=== PATIENT | male | born 1975 | race African-American/Black ===

== ENCOUNTER 2017-05-22 06:59 | Emergency (ER) | payer OTHER ==
[~2017-05-22] VITALS: Ht 190.5 cm; Wt 122.5 kg
[2017-05-22 07:09] VITALS: TEMP 36.6; Ht 190.5 cm; Wt 122.5 kg
[2017-05-22] MEDS ORDERED: QUET1TAB13 PO (07:11)
[2017-05-22] MEDS ORDERED: IBUP600T44 PO (07:11)
[2017-05-22] MEDS ORDERED: LITH1TAB PO (07:11)
[2017-05-22] MEDS ORDERED: OPTIRAY 320 IV PRN (07:30)
[2017-05-22 07:35] LABS: BASO % 0.2 %; BASO ABS # 0.01 K/uL (0-0.2); COMPLETE YES; EOS % 0.5 %; HEMATOCRIT 40.6 % (42-52); IG% 0.3 %; LYMPH % 23.2 %; LYMPH ABS # 1.43 K/uL (1.2-3.4); MEAN CELL VOLUME 87.9 fL (80-100); MEAN CORPUSCULAR HEMOGLOBIN 30.7 pg (25-34); MEAN PLATELET VOLUME 10.9 fL (7.4-10.4); MONO % 7.6 %; NEUT % 68.2 %; PLATELET COUNT 178 K/uL (130-400); RED BLOOD COUNT 4.62 M/uL (4.7-6.1); WHITE BLOOD COUNT 6.16 K/uL (4.8-10.8)
[2017-05-22 07:38] LABS: ISTAT CREATININE 1.2 mg/dl (0.6-1.3); ISTAT HEMOGLOBIN 13.9 g/dl (14.0-18.0); ISTAT IONIZED CALCIUM 1.26 mmol/l (1.12-1.32)
[2017-05-22 07:49] LABS: URINE APPEARANCE CLEAR (CLEAR); URINE BILIRUBIN NEG (NEG); URINE COLOR YELLOW; URINE NITRITE NEG (NEG); URINE PH 8.5 (4.5-7.5); URINE SPECIFIC GRAVITY 1.003 (1.000-1.030); UROBILINOGEN NEG (NEG)
[2017-05-22 07:52] LABS: BUN/CREATININE RATIO 15.5 (10-20); CALCIUM 9.4 mg/dl (8.5-10.1); CREATININE 1.19 mg/dl (0.60-1.40); POTASSIUM 3.9 mmol/L (3.5-5.1)
[2017-05-22 07:56] LABS: MANUAL MICROSCOPIC REQUIRED? NO; REVIEW REQ? NO
--- NOTE | 2017-05-22 08:04 | DIAGNOSTIC IMAGING REPORT ---
CERVICAL SPINE W/O CT DOSE: HISTORY: Trauma Neck pain TECHNIQUE: Multiaxial CT images of the cervical spine were performed and reformatted in the sagittal and coronal plane without the use of contrast. A dose lowering technique was utilized adhering to the principles of ALARA. COMPARISON: None. FINDINGS: No fractures. No subluxation. Prevertebral soft tissues and the C1-C2 interval are intact. No pneumothorax. IMPRESSION: No fractures within the cervical spine. The above report was generated using voice recognition software. It may contain grammatical, syntax or spelling errors. Electronically signed by: Pj Littlejonh M.D. 05/22/2017 8:02 AM Dictated Date/Time: 05/22/2017 7:59 AM
--- NOTE | 2017-05-22 08:07 | DIAGNOSTIC IMAGING REPORT ---
HEAD WITHOUT CONTRAST (CT) CT DOSE: HISTORY: Trauma [place] TECHNIQUE: Multiaxial CT images of the head were performed without the use of intravenous contrast. A dose lowering technique was utilized adhering to the principles of ALARA. Comparison: None. Findings: The paranasal sinuses and mastoid air cells are clear. The calvarium and skull base are intact. The ventricles and sulci are within normal limits. There is no mass, hematoma, midline shift, or acute infarct. Impression: No acute intracranial abnormality. The above report was generated using voice recognition software. It may contain grammatical, syntax or spelling errors. Electronically signed by: Pj Littlejohn M.D. 05/22/2017 8:05 AM Dictated Date/Time: 05/22/2017 8:04 AM
--- NOTE | 2017-05-22 08:10 | DIAGNOSTIC IMAGING REPORT ---
THORACIC SPINE WITHOUT CT DOSE: 3084.41 mGy.cm HISTORY: Trauma Upper back pain TECHNIQUE: Multiaxial CT images of the thoracic spine were performed and reformatted in the sagittal and coronal plane without the use of contrast. A dose lowering technique was utilized adhering to the principles of ALARA. COMPARISON: None. FINDINGS: No fractures. No subluxation. Paraspinal soft tissues are unremarkable. IMPRESSION: No fractures within the thoracic spine. The above report was generated using voice recognition software. It may contain grammatical, syntax or spelling errors. Electronically signed by: Pj Littlejohn M.D. 05/22/2017 8:09 AM Dictated Date/Time: 05/22/2017 8:06 AM
--- NOTE | 2017-05-22 08:12 | DIAGNOSTIC IMAGING REPORT ---
CT NECK WITH INTRAVENOUS CONTRAST. HISTORY: Neck pain TECHNIQUE: Multiaxial CT images of the neck were performed following the use of intravenous contrast. COMPARISON STUDY: None. FINDINGS: There are few biapical blebs with the largest on the right measuring 1.9 cm. No pneumothorax. The trachea is midline and is patent. No fractures within the visualized osseous structures. Paranasal sinuses and mastoid air cells are clear. The visualized brain parenchyma and orbits are unremarkable. The major mucosal airway surfaces are intact. The epiglottis and prevertebral soft tissues are normal in thickness. The thyroid gland enhances normally. No significant cervical lymphadenopathy. The parotid and submandibular glands are symmetric. No masses or loculated fluid collections identified. The major cervical vessels enhance normally. IMPRESSION: No significant abnormality identified within the neck. Electronically signed by: Jordan Phan M.D. 05/22/2017 8:10 AM Dictated Date/Time: 05/22/2017 8:06 AM
[2017-05-22] MEDS ORDERED: GADAVIST IV PRN (11:30)
--- NOTE | 2017-05-22 11:34 | DIAGNOSTIC IMAGING REPORT ---
CERVICAL SPINE COMBO HISTORY: Pain. Trauma. Lower > Upper extremity paresthesias TECHNIQUE: Multiplanar multisequence MRI of the cervical spine was performed both before and after the use of intravenous contrast. COMPARISON STUDY: CT study same date FINDINGS: Signal characteristics of the vertebral bodies are unremarkable. There are findings of minimal degenerative disc desiccation C2-C5. Signal characteristics of the cervical cord are unremarkable. Postcontrast sagittal images show no abnormal postcontrast enhancement. C2-C3: Minimal disc bulge C3-C4: Moderate osteophytic narrowing left neuroforamina. Minimal left posterior disc bulge C4-C5: Mild broad-based disc disc bulge. C5-C6: No significant central canal or neural foraminal narrowing. C6-C7: No significant central canal or neural foraminal narrowing. C7-T1: No significant central canal or neural foraminal narrowing. IMPRESSION: 1. No acute process of the cervical spine. 2. Minimal disc bulges on a degenerative basis at several levels. 3. No abnormal signal characteristics the cervical cord. The above report was generated using voice recognition software. It may contain grammatical, syntax or spelling errors. Electronically signed by: Pj Littlejohn M.D. 05/22/2017 11:33 AM Dictated Date/Time: 05/22/2017 11:29 AM
[2017-05-22 12:54] VITALS: BP 122/77; PULSE 87; O2SAT 97
--- NOTE | 2017-05-22 15:24 | EMERGENCY ROOM VISIT NOTE ---
History First contact with patient: 07:06 Chief Complaint: BACK PAIN Stated Complaint: NEAD/NECK AND BACK PAIN History of Present Illness The patient is a 41 year old male who presents to the Emergency Room via ambulance from [facility] [place] for evaluation of injuries after being found hanging from his cell vent with a bed sheet wrapped around his neck. They suspect that this happened around 5:30 AM. They do not know how long the patient was hanging, and reported that they did not review security camera coverage. They report that the patient was not unconscious when he was found. The patient complains of a headache, neck pain and upper back pain. He also reports tingling in both of his legs. He did initially have some numbness in the arms that has since resolved. He denies any difficulty swallowing, chest pain, shortness of breath or paresthesias/numbness of the upper extremities. He rates his discomfort a 4 out of 10. Review of Systems HEENT: Denies dizziness, visual problems, hearing loss, tinnitus. Denies difficulty swallowing or oral lesions. PULMONARY: Denies cough, shortness of breath, sputum production or hemoptysis. CARDIOVASCULAR: Denies chest pain, palpitations, dyspnea on exertion, orthopnea or peripheral edema. GASTROINTESTINAL: Denies diarrhea, constipation, nausea, vomiting, or abdominal pain. GENITOURINARY: Denies dysuria, frequency, urgency or nocturia. NEUROLOGIC: Denies history of epilepsy, CVA, TIA or chronic headaches. MUSCULOSKELETAL: Denies history of joint tenderness/swelling. SKIN: Denies rashes or lesions. PSYCHIATRIC: History of depression. ENDOCRINE: Denies history of diabetes or thyroid disorders. Past Medical/Surgical History Medical Problems: (1) Antisocial personality disorder in adult (2) Cannabis use disorder, severe, dependence (3) Cocaine use disorder, severe, dependence (4) Major depressive disorder, single episode, unspecified (5) Opioid use disorder, severe, dependence (6) Phencyclidine (PCP) use disorder, moderate (7) Sedative, hypnotic or anxiolytic use disorder, moderate, in controlled environment, dependence Surgical Problems: (1) No history of previous surgery Family History Unknown Social History Smoking Status: Former Smoker Alcohol Use: none Drug Use: none Marital Status: single Housing Status: other (incarcerated) Occupation Status: unemployed Current/Historical Medications Scheduled Ibuprofen (Motrin), 600 MG PO TID [place] Carbonate Ext Rel (Lithobid Ext Rel), 450 MG PO BID Quetiapine Fumarate (Seroquel), 400 MG PO BID Physical Exam Vital Signs Date Time Temp Pulse Resp B/P (MAP) Pulse Ox O2 Delivery O2 Flow Rate FiO2 05/22/17 12:54 87 20 122/77 97 05/22/17 12:05 77 05/22/17 11:34 72 20 116/74 100 Room Air 05/22/17 07:15 84 05/22/17 07:09 36.6 74 16 119/82 100 Room Air Physical Exam CONSTITUTIONAL: Healthy and well nourished. Alert and oriented X 3. Patient does not appear in any acute distress. GCS 15. The patient is currently cured on a longboard with cervical collar in place. HEENT: Normocephalic, atraumatic. Pupils equal, round and reactive. No subconjunctival hemorrhage, hemotympanum, epistaxis, raccoon's eyes or Arteaga sign. OROPHARYNX: No posterior pharyngeal erythema, edema or postnasal bleeding. NECK: The patient has generalized tenderness to palpation about the neck. However, there is no visible circumferential or partial circumferential edema, ecchymosis, erythema or petechiae noted. RESPIRATORY: Clear to auscultation bilaterally with no wheezing, crackles, rhonchi or stridor. CARDIOVASCULAR: Regular rate and rhythm with no murmurs, rubs or gallops. GASTROINTESTINAL: Bowel sounds present in all quadrants. Abdomen is soft and nontender to palpation. MUSCULOSKELETAL: Examination shows generalized tenderness to palpation through the mid to upper cervical spine, paraspinous muscles, scalenes and trapezius muscles. No ecchymosis or petechiae noted. The patient has no tenderness to palpation of the upper or lower extremities. Equal hand sign language teacher bilaterally. Ankle plantar/dorsiflexion strength is 5 out of 5 and symmetric bilaterally. INTEGUMENTARY: No rash or other significant dermatologic conditions noted. NEUROLOGIC: Cranial nerves II-XII grossly intact. No focal neurologic deficits noted. Upper and lower extremities are sensory intact. Deep tendon reflexes of the upper and lower extremities are 2+ and symmetric bilaterally. Medical Decision & Procedures ER Provider Diagnostic Interpretation: Noncontrast CT of the head, cervical spine and thoracic spine were normal without any evidence for acute fractures, intracranial bleed or subluxations. All radiologist reports were reviewed. CT with IV contrast of the neck does not show any additional soft tissue injury. Radiologist report was also reviewed area and MRI combo of the cervical spine does not show any abnormal signal changes or other acute findings. Radiologist report is as follows: CERVICAL SPINE COMBO HISTORY: Pain. Trauma. Lower > Upper extremity paresthesias TECHNIQUE: Multiplanar multisequence MRI of the cervical spine was performed both before and after the use of intravenous contrast. COMPARISON STUDY: CT study same date FINDINGS: Signal characteristics of the vertebral bodies are unremarkable. There are findings of minimal degenerative disc desiccation C2-C5. Signal characteristics of the cervical cord are unremarkable. Postcontrast sagittal images show no abnormal postcontrast enhancement. C2-C3: Minimal disc bulge C3-C4: Moderate osteophytic narrowing left neuroforamina. Minimal left posterior disc bulge C4-C5: Mild broad-based disc disc bulge. C5-C6: No significant central canal or neural foraminal narrowing. C6-C7: No significant central canal or neural foraminal narrowing. C7-T1: No significant central canal or neural foraminal narrowing. IMPRESSION: 1. No acute process of the cervical spine. 2. Minimal disc bulges on a degenerative basis at several levels. 3. No abnormal signal characteristics the cervical cord. Laboratory Results 05/22/17 07:20 Red Blood Count 4.62, Mean Corpuscular Volume 87.9, Mean Corpuscular Hemoglobin 30.7, Mean Corpuscular Hemoglobin Concent 35.0, Mean Platelet Volume 10.9, Neutrophils (%) (Auto) 68.2, Lymphocytes (%) (Auto) 23.2, Monocytes (%) (Auto) 7.6, Eosinophils (%) (Auto) 0.5, Basophils (%) (Auto) 0.2, Neutrophils # (Auto) 4.20, Lymphocytes # (Auto) 1.43, Monocytes # (Auto) 0.47, Eosinophils # (Auto) 0.03, Basophils # (Auto) 0.01 05/22/17 07:20 Test 05/22/17 07:20 05/22/17 07:26 05/22/17 07:30 White Blood Count 6.16 K/uL (4.8-10.8) Red Blood Count 4.62 M/uL (4.7-6.1) Hemoglobin 14.2 g/dL (14.0-18.0) Hematocrit 40.6 % (42-52) Mean Corpuscular Volume 87.9 fL (80-100) Mean Corpuscular Hemoglobin 30.7 pg (25-34) Mean Corpuscular Hemoglobin Concent 35.0 g/dl (32-36) Platelet Count 178 K/uL (130-400) Mean Platelet Volume 10.9 fL (7.4-10.4) Neutrophils (%) (Auto) 68.2 % Lymphocytes (%) (Auto) 23.2 % Monocytes (%) (Auto) 7.6 % Eosinophils (%) (Auto) 0.5 % Basophils (%) (Auto) 0.2 % Neutrophils # (Auto) 4.20 K/uL (1.4-6.5) Lymphocytes # (Auto) 1.43 K/uL (1.2-3.4) Monocytes # (Auto) 0.47 K/uL (0.11-0.59) Eosinophils # (Auto) 0.03 K/uL (0-0.5) Basophils # (Auto) 0.01 K/uL (0-0.2) RDW Standard Deviation 40.2 fL (36.4-46.3) RDW Coefficient of Variation 12.6 % (11.5-14.5) Immature Granulocyte % (Auto) 0.3 % Immature Granulocyte # (Auto) 0.02 K/uL (0.00-0.02) Est Creatinine Clear Calc Drug Dose 116.4 ml/min Estimated GFR () 88.0 Estimated GFR (Non- 76.0 BUN/Creatinine Ratio 15.5 (10-20) Calcium Level 9.4 mg/dl (8.5-10.1) Bedside Hemoglobin 13.9 g/dl (14.0-18.0) Bedside Hematocrit 41 % (42-52) Bedside Sodium 144 mEq/L (135-144) Bedside Potassium 4.0 mEq/L (3.3-5.0) Bedside Chloride 106 mEq/L (101-112) Bedside Total CO2 26 mEq/l (24-31) Anion Gap 17.0 mmol/L (16-25) Bedside Blood Urea Nitrogen 18 mg/dl (7-18) Bedside Creatinine 1.2 mg/dl (0.6-1.3) Bedside Glucose (other) 92 mg/dl (70-99) Bedside Ionized Calcium (Lance) 1.26 mmol/l (1.12-1.32) Urine Color YELLOW Urine Appearance CLEAR (CLEAR) Urine pH 8.5 (4.5-7.5) Urine Specific [place] 1.003 (1.000-1.030) Urine Protein NEG (NEG) Urine Glucose (UA) NEG (NEG) Urine Ketones NEG (NEG) Urine Occult Blood NEG (NEG) Urine Nitrite NEG (NEG) Urine Bilirubin NEG (NEG) Urine Urobilinogen NEG (NEG) Urine Leukocyte Esterase NEG (NEG) ED Course Patient history and physical exam were performed. Nurse's notes were reviewed. Vital signs were reviewed and were normal. The patient does not appear in any acute distress, and really has no significant physical findings on exam. Upper and lower extremities were neurovascularly intact without any motor or sensory deficit. Given the nature of injury, additional imaging studies were recommended. IV access was established, an i-STAT labs were drawn, performed and normal. CT of the head, cervical spine and thoracic spine were normal. Soft tissue CT of the neck also did not show any acute traumatic injury. Labs were further reviewed and normal. The patient still reported a persistent paresthesia sensation of bilateral lower extremities. Given the patient's symptoms, the case was further discussed with Dr. Quiroz, ED attending physician who recommended MRI imaging of the cervical spine. MRI combo of the neck was also normal without any increased signal within the cervical cord. With a normal MRI, I also elected to contact and speak with Dr. Benito, neurologist on-call, who also agreed that no further neurology follow-up would be needed. I did ask about the possibility of corticosteroid treatment. Dr. Benito suggested that if the patient is dealing with depression, corticosteroids could certainly exacerbate his depression. I then spoke with Dr. Go in the medical clinic at [facility]. He will continue further care for the patient. The patient was transferred back to his facility, and denied any significant pain at the conclusion of my exam. Medical Decision Medication Reconcilliation Current Medication List: was personally reviewed by me Blood Pressure Screening Patient's blood pressure: Normal blood pressure Impression Primary Impression: Suicide attempt by hanging Additional Impressions: Paresthesia of bilateral legs Neck pain Upper back pain Departure Information Referrals No Doctor, Assigned (PCP) Patient Instructions My [facility] Problem Qualifiers Primary Impression: Suicide attempt by hanging Encounter type: initial encounter Qualified Codes: T71.162A - Asphyxiation due to hanging, intentional self-harm, initial encounter
== END 2017-05-22 12:55 | disposition home or self-care (01) ==
LOC: C.EDB 07:02
DX: M54.2 Cervicalgia (principal); M54.6 Pain in thoracic spine; X83.8XXA Intentional self-harm by other specified means, initial encounter; R20.2 Paresthesia of skin; F32.9 Major depressive disorder, single episode, unspecified; Z87.891 Personal history of nicotine dependence; Z79.899 Other long term (current) drug therapy

== ENCOUNTER → 2017-06-15 | Outpatient (CLI) | payer OTHER ==
[~2017-06-15] MED LIST: IBUP600T44 PO; LITH1TAB PO; QUET1TAB13 PO
[2017-06-15 14:20] LABS: BASO % 0.3 %; BASO ABS # 0.02 K/uL (0-0.2); EOS % 1.5 %; HEMATOCRIT 45.2 % (42-52); HEMOGLOBIN 15.4 g/dL (14.0-18.0); IG# 0.01 K/uL (0.00-0.02); LYMPH ABS # 2.97 K/uL (1.2-3.4); MEAN CELL VOLUME 86.8 fL (80-100); MEAN CORPUSCULAR HEMOGLOBIN 29.6 pg (25-34); MEAN PLATELET VOLUME 11.9 fL (7.4-10.4); MONO % 9.1 %; NEUT % 43.9 %; PLATELET COUNT 253 K/uL (130-400); RED CELL DISTRIBUTION WIDTH CV 12.7 % (11.5-14.5); RED CELL DISTRIBUTION WIDTH SD 40.5 fL (36.4-46.3)
[2017-06-15 14:26] LABS: MEAN CORPUSCULAR HGB CONC 34.1 g/dl (32-36)
[2017-06-15 14:46] LABS: ALBUMIN 4.4 gm/dl (3.4-5.0); ALKALINE PHOSPHATASE 66 U/L (45-117); ALT/SGPT 38 U/L (12-78); AST/SGOT 31 U/L (15-37); BLOOD UREA NITROGEN 18 mg/dl (7-18); CALCIUM 9.3 mg/dl (8.5-10.1); CARBON DIOXIDE 26 mmol/L (21-32); CREATININE 1.34 mg/dl (0.60-1.40); GLUCOSE 181 mg/dl (70-99); POTASSIUM 4.5 mmol/L (3.5-5.1); SODIUM 134 mmol/L (136-145); TOTAL PROTEIN 8.5 gm/dl (6.4-8.2)
== END ==
LOC: C.LABSPEC 13:38
PROVIDERS: ATTEND Family Medicine
DX: T73.0XXA Starvation, initial encounter (principal); X58.XXXA Exposure to other specified factors, initial encounter